=== PATIENT | male | born 1995 | race Caucasian/White ===

== ENCOUNTER 2017-11-04 11:08 | Emergency (ER) | payer OTHER ==
[2017-11-04 11:26] VITALS: BP 158/86; PULSE 95; RESP 17; TEMP 98
--- NOTE | 2017-11-04 11:43 | XR ---
Right leg HISTORY: Trauma and pain 2 views of the right leg Bone mineralization, joint spaces and alignment are maintained. Question soft tissue swelling. No rad iopaque foreign body. IMPRESSION: No fracture or dislocation. Correlate for soft tissue swelling. Follow-up as indicated.
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
== END 2017-11-04 12:45 | disposition home or self-care (01) ==
LOC: EC 11:08
DX: S80.11XA Contusion of right lower leg, initial encounter (principal); W22.8XXA Striking against or struck by other objects, initial encounter; Y99.0 Civilian activity done for income or pay
CPT/HCPCS: 99283

== ENCOUNTER 2020-04-02 16:24 | Emergency (ER) | payer OTHER ==
[2020-04-02 16:30] VITALS: BP 152/92; PULSE 89; RESP 18; TEMP 98.1
--- NOTE | 2020-04-02 16:47 | ED ---
General Adult HPI - General Chief complaint: Dental/Oral Stated complaint: dental infection Time Seen by Provider: 04/02/20 16:39 Source: patient, RN notes reviewed Mode of arrival: ambulatory Limitations: no limitations - History of Present Illness Initial comments: 24-year-old male presents to the emergency room for a chief complaint of dental pain. Patient has had dental pain for the past couple days. He has had an infection in this tooth before. Patient states he was trying to get into his dentist but was unable to because of insurance reasons. Patient denies fevers or chills. Denies trismus. Denies sublingual edema. Denies neck pain and stiffness.Patient has no other complaints at this time including shortness of breath, chest pain, abdominal pain, nausea or vomiting, headache, or visual changes. - Related Data Previous Rx's Medication Instructions Recorded Ibuprofen [Motrin] 600 mg PO Q6HR PRN #20 tab 11/04/17 Penicillin V Potassium [Pen Vee K] 500 mg PO Q6H 10 Days #40 tablet 04/02/20 Allergies Allergy/AdvReac Type Severity Reaction Status Date / Time No Known Allergies Allergy Verified 04/02/20 16:30 Review of Systems ROS Statement: Those systems with pertinent positive or pertinent negative responses have been documented in the HPI. ROS Other: All systems not noted in ROS Statement are negative. Past Medical History Past Medical History: No Reported History History of Any Multi-Drug Resistant Organisms: None Reported Past Surgical History: No Surgical Hx Reported Past Psychological History: No Psychological Hx Reported Smoking Status: Never smoker Past Alcohol Use History: Occasional Past Drug Use History: Marijuana General Exam Limitations: no limitations General appearance: alert, in no apparent distress Head exam: Present: atraumatic, normocephalic, normal inspection Eye exam: Present: normal appearance, PERRL, EOMI. Absent: scleral icterus, conjunctival injection, periorbital swelling ENT exam: Present: normal exam, mucous membranes moist, TM's normal bilaterally, normal external ear exam. Absent: normal oropharynx (tenderness to tooth 12. Patient does have previous filling noted. There is no abscess with direct visualization or palpation of the gum line. No sublingual edema. No trismus.) Neck exam: Present: normal inspection. Absent: tenderness, meningismus, lymphadenopathy Respiratory exam: Present: normal lung sounds bilaterally. Absent: respiratory distress, wheezes, rales, rhonchi, stridor Cardiovascular Exam: Present: regular rate, normal rhythm, normal heart sounds. Absent: systolic murmur, diastolic murmur, rubs, gallop, clicks Course Vital Signs 04/02/20 16:26 Temperature 98.1 F Pulse Rate 89 Respiratory 18 Rate Blood Pressure 152/92 O2 Sat by Pulse 99 Oximetry Medical Decision Making - Medical Decision Making patient was treated with penicillin. He was directed to follow up with his dentist as soon as possible. He will return here for any worsening symptoms. Disposition Clinical Impression: Pain, dental Disposition: HOME SELF-CARE Condition: Good Instructions (If sedation given, give patient instructions): Toothache (ED) Additional Instructions: take antibiotic as directed. Follow-up with dentist as soon as possible. Return to the emergency room for any worsening symptoms. [facility] [address] [id number] (existing clients only) New clients: [phone] 1st consult: $50 (includes XRs) Usually 30% less than private dentist for visits after. [employer] [facility] [employer] Have to pay $50 for Xrays and rest is covered [phone] Prescriptions: Penicillin V Potassium [Pen Vee K] 500 mg PO Q6H 10 Days #40 tablet Is patient prescribed a controlled substance at d/c from ED?: No Referrals: Talha Mackenzie MD [REFERRING] - 1-2 days Time of Disposition: 16:47
== END 2020-04-02 16:59 | disposition home or self-care (01) ==
LOC: EC 16:24
DX: K08.89 Other specified disorders of teeth and supporting structures (principal)
CPT/HCPCS: 99282

== ENCOUNTER 2020-04-03 19:47 | Emergency (ER) | payer OTHER ==
[2020-04-03 19:51] VITALS: TEMP 98.3
[2020-04-03] MEDS ORDERED: AMOXIC-POT CLAV 875MG STARTER PACK 2 TAB BTL PO STA (20:25)
[2020-04-03 20:26] VITALS: BP 160/98; PULSE 84; RESP 17
--- NOTE | 2020-04-03 20:26 | ED ---
General Adult HPI - General Chief complaint: Recheck/Abnormal Lab/Rx Stated complaint: Recheck tooth pain Time Seen by Provider: 04/03/20 19:54 Source: patient, RN notes reviewed, old records reviewed Mode of arrival: ambulatory Limitations: no limitations - History of Present Illness Initial comments: 24-year-old male patient presented he chief complaint of possible adverse effect from medication. Patient was seen here yesterday for a dental infection. Patient reports he started on Penicillin VK. Since then he's had some nausea and one episode of emesis. Denies any local or abdominal pain states that he had a small amount generalized discomfort which resolved. Denies any cough or congestion or sick contacts. Denies any other complaints. Pt denies any past medical history. Systemic: Pt denies fatigue, fever/chills, rash. Pt denies weakness, night sweats, weight loss. Neuro: Pt denies headache, visual disturbances, syncope or pre-syncope. HEENT: Pt denies ocular discharge or irritation, otalgia, rhinorrhea, pharyngitis or notable lymphadenopathy. Cardiopulmonary: Pt denies chest pain, SOB, heart palpitations, dyspnea on exertion. Abdominal/GI: Pt denies abdominal pain, n/v/d. : Pt denies dysuria, burning w/ urination, frequency/urgency. Denies new onset urinary or bowel incontinence. MSK: Pt denies myalgia, loss of strength or function in extremities. Neuro: Pt denies new onset weakness, paresthesias. - Related Data Previous Rx's Medication Instructions Recorded Ibuprofen [Motrin] 600 mg PO Q6HR PRN #20 tab 11/04/17 Penicillin V Potassium [Pen Vee K] 500 mg PO Q6H 10 Days #40 tablet 04/02/20 Amoxicillin/Potassium Clav 1 each PO Q12HR 7 Days #14 tab 04/03/20 [Augmentin 875-125 Tablet] Allergies Allergy/AdvReac Type Severity Reaction Status Date / Time No Known Allergies Allergy Verified 04/03/20 19:51 Review of Systems ROS Statement: Those systems with pertinent positive or pertinent negative responses have been documented in the HPI. ROS Other: All systems not noted in ROS Statement are negative. Past Medical History Past Medical History: No Reported History History of Any Multi-Drug Resistant Organisms: None Reported Past Surgical History: No Surgical Hx Reported Past Psychological History: No Psychological Hx Reported Smoking Status: Never smoker Past Alcohol Use History: Occasional Past Drug Use History: Marijuana General Exam - General Exam Comments Initial Comments: Constitutional: NAD, AOX3, Pt has pleasant affect. HEENT: NC/AT, trachea midline, neck supple, no lymphadenopathy. Posterior pharynx non erythematous, without exudates. External ears appear normal, without discharge. Mucous membranes moist. Eyes PERRLA, EOM intact. There is no scleral icterus. No pallor noted. No abscess noted. No dental abscess, significant gun erythema or discharge noted. Patient reports mild amount of pressure to 7th tooth. Cardiopulmonary: RRR, no murmurs, rubs or gallops, no JVD noted. Lungs CTAB in anterior and posterior aranda. No peripheral edema. Abdominal exam: Abdomen soft and non-distended. Abdomen non-tender to palpation in all 4 quadrants. Bowel sounds active in LLQ. No hepatosplenomegaly. Neuro: CN II-XII grossly intact. No nuchal rigidity. No raccon eyes, no mccord sign. MSK: Full active ROM in upper and lower extremities. Limitations: no limitations Course Vital Signs 04/03/20 19:48 Temperature 98.3 F Pulse Rate 81 Respiratory 20 Rate Blood Pressure 154/99 O2 Sat by Pulse 99 Oximetry Medical Decision Making - Medical Decision Making 24-year-old male patient presents to ED for evaluation of possible adverse effect from medication. Patient started on Penicillin VK yesterday. Since these had some nausea and one episode of emesis. Some [id number] abdom inal discomfort which has since resolved. Patient is requesting changing to an amoxicillin-containing medication which she has been able take for without any difficulty. Patient will be placed on Augmentin. Patient is also requesting a Covid test which we will perform. Patient will follow-up with primary care provider and return if any worsening symptoms. Case discussed with Dr. Garcia. Disposition Clinical Impression: Adverse effects of medication Disposition: HOME SELF-CARE Condition: Stable Instructions (If sedation given, give patient instructions): Toothache (ED) Additional Instructions: follow up with primary care provider tomorrow. Follow-up with dentist as soon as possible. Take antibiotics as directed. Stop taking the penicillin VK. Take medication with food. Self quarantine until coronavirus test result. Return to ER with any worsening symptoms. Prescriptions: Amoxicillin/Potassium Clav [Augmentin 875-125 Tablet] 1 each PO Q12HR 7 Days #14 tab Is patient prescribed a controlled substance at d/c from ED?: No Referrals: None,Stated [Primary Care Provider] - 1-2 days Talha Mackenzie MD [REFERRING] - 1-2 days
== END 2020-04-03 20:36 | disposition home or self-care (01) ==
LOC: EC 19:47
DX: R11.2 Nausea with vomiting, unspecified (principal); T36.0X5A Adverse effect of penicillins, initial encounter; Z20.828 Contact with and (suspected) exposure to other viral communicable diseases
CPT/HCPCS: 99284; U0003

== ENCOUNTER 2020-05-19 13:17 | Emergency (ER) | payer OTHER ==
[2020-05-19 13:25] VITALS: BP 139/88; PULSE 65; RESP 18; TEMP 98.1
--- NOTE | 2020-05-19 14:55 | ED ---
ENT HPI - General Chief complaint: ENT Stated complaint: lt ear pain Source: patient Mode of arrival: ambulatory Limitations: no limitations - History of Present Illness Initial comments: Patient is a 24-year-old previously healthy male presents emergency Department with reported decreased hearing to the left ear. Patient states that he got water in the ER couple of days ago. He has been attempting to remove the ear using hydrogen peroxide and Q-tips however has not had success. He feels as if he has muffled hearing on that side and feels slightly off balance has of it. He admits to a slight ache. No posterior ear pain. Denies any discharge. No headaches or visual changes. No fevers or chills. No sore throat. No other alleviating, precipitating or modifying factors - Related Data Previous Rx's Medication Instructions Recorded Amoxicillin/Potassium Clav 1 each PO Q12HR 7 Days #14 tab 04/03/20 [Augmentin 875-125 Tablet] Allergies Allergy/AdvReac Type Severity Reaction Status Date / Time Penicillins Allergy Unknown Verified 05/19/20 13:25 Review of Systems ROS Statement: Those systems with pertinent positive or pertinent negative responses have been documented in the HPI. ROS Other: All systems not noted in ROS Statement are negative. Past Medical History Past Medical History: No Reported History History of Any Multi-Drug Resistant Organisms: None Reported Past Surgical History: No Surgical Hx Reported Past Psychological History: No Psychological Hx Reported Smoking Status: Never smoker Past Alcohol Use History: Occasional Past Drug Use History: Marijuana General Exam Limitations: no limitations Course Vital Signs 05/19/20 13:21 Temperature 98.1 F Pulse Rate 65 Respiratory 18 Rate Blood Pressure 139/88 O2 Sat by Pulse 100 Oximetry Medical Decision Making - Medical Decision Making Upon arrival patient is placed in room 17. A thorough history and physical exam was performed. Left ear cerumen impaction is identified. We did irrigate the patient's left ear and removed multiple fragments of cerumen. Ears and visualized once again in the canal is completely clear. Patient reports to improvement in his symptoms. Sent patient be discharged home. May use Debrox eardrops [id number]. Follow up with his primary care physician for reevaluation. Return to the emergency department for any new or worsening symptoms. Patient was also given follow-up information for the ENT superintendent communications. Patient understood this he was discharged home in stable condition Disposition Clinical Impression: Excessive cerumen in left ear canal Disposition: HOME SELF-CARE Condition: Stable Instructions (If sedation given, give patient instructions): Cerumen Impaction (ED) Additional Instructions: Please follow-up with your primary care doctor. Return to the emergency room for any new or worsening symptoms Is patient prescribed a controlled substance at d/c from ED?: No Referrals: None,Stated [Primary Care Provider] - 1-2 days Sy Gonzales MD [STAFF PHYSICIAN] - 1-2 days Time of Disposition: 14:55
== END 2020-05-19 15:37 | disposition home or self-care (01) ==
LOC: EC 13:17
DX: H61.22 Impacted cerumen, left ear (principal); Z88.0 Allergy status to penicillin
CPT/HCPCS: 69209; 99282

== ENCOUNTER 2020-07-03 11:12 | Emergency (ER) | payer OTHER ==
[2020-07-03 11:22] VITALS: BP 127/82; PULSE 76; RESP 18; TEMP 98.6
--- NOTE | 2020-07-03 11:51 | ED ---
General Adult HPI - General Chief complaint: Dental/Oral Stated complaint: Mouth pain Time Seen by Provider: 07/03/20 11:25 Source: patient, RN notes reviewed Mode of arrival: ambulatory Limitations: no limitations - History of Present Illness Initial comments: 25-year-old male presents for dental pain. Patient reports that he had an infection several months ago. Patient states he was supposed of a root canal at that time but was unable. Patient states that the pain had resolved however it is now returning again starting a few days ago. Patient denies any difficulty opening his mouth or swallowing. Denies fevers or chills. Denies neck pain or stiffness.Patient has no other complaints at this time including shortness of breath, chest pain, abdominal pain, nausea or vomiting, headache, or visual changes. - Related Data Previous Rx's Medication Instructions Recorded Amoxicillin/Potassium Clav 1 each PO Q12HR 7 Days #14 tab 04/03/20 [Augmentin 875-125 Tablet] Clindamycin [Cleocin] 300 mg PO Q8H 7 Days #42 cap 07/03/20 Allergies Allergy/AdvReac Type Severity Reaction Status Date / Time Penicillins Allergy Unknown Verified 07/03/20 11:22 Review of Systems ROS Statement: Those systems with pertinent positive or pertinent negative responses have been documented in the HPI. ROS Other: All systems not noted in ROS Statement are negative. Past Medical History Past Medical History: No Reported History History of Any Multi-Drug Resistant Organisms: None Reported Past Surgical History: No Surgical Hx Reported Past Psychological History: No Psychological Hx Reported Smoking Status: Never smoker Past Alcohol Use History: Occasional Past Drug Use History: Marijuana General Exam Limitations: no limitations General appearance: alert, in no apparent distress Head exam: Present: atraumatic, normocephalic, normal inspection Eye exam: Present: normal appearance, PERRL, EOMI. Absent: scleral icterus, conjunctival injection, periorbital swelling ENT exam: Absent: normal oropharynx (Patient has tenderness to the left upper incisor. No dental abscess. No sublingual edema. No trismus.) Neck exam: Present: normal inspection, full ROM. Absent: tenderness, meningismus, lymphadenopathy Respiratory exam: Present: normal lung sounds bilaterally. Absent: respiratory distress, wheezes, rales, rhonchi, stridor Cardiovascular Exam: Present: regular rate, normal rhythm, normal heart sounds. Absent: systolic murmur, diastolic murmur, rubs, gallop, clicks Neurological exam: Present: alert Course Vital Signs 07/03/20 11:20 Temperature 98.6 F Pulse Rate 76 Respiratory 18 Rate Blood Pressure 127/82 O2 Sat by Pulse 98 Oximetry Medical Decision Making - Medical Decision Making Patient was given clindamycin given penicillin ALLERGY. He will follow up with his dentist. He'll return here for any worsening symptoms. Disposition Clinical Impression: Pain, dental Disposition: HOME SELF-CARE Condition: Good Instructions (If sedation given, give patient instructions): Dental Abscess (ED) Additional Instructions: Please take antibiotic as directed. Please follow-up with your doctor and dentist as soon as possible. Given any worsening symptoms return to the nearest ER. Prescriptions: Clindamycin [Cleocin] 300 mg PO Q8H 7 Days #42 cap Is patient prescribed a controlled substance at d/c from ED?: No Referrals: Talha Mackenzie MD [REFERRING] - 1-2 days Time of Disposition: 11:50
== END 2020-07-03 11:58 | disposition home or self-care (01) ==
LOC: EC 11:12
DX: K08.89 Other specified disorders of teeth and supporting structures (principal); Z88.0 Allergy status to penicillin
CPT/HCPCS: 99282

== ENCOUNTER 2020-07-07 13:01 | Emergency (ER) | payer OTHER ==
--- NOTE | 2020-07-07 15:08 | ED ---
General Adult HPI - General Chief complaint: Dental/Oral Stated complaint: Oral/face swelling Time Seen by Provider: 07/07/20 14:54 Source: patient Mode of arrival: ambulatory Limitations: no limitations - History of Present Illness Initial comments: 25-year-old male patient presents to the emergency department today for evaluation of left-sided facial swelling. Patient states he was seen and evaluated here on 07/03/2020 and diagnosed with a dental infection and prescribed clindamycin. Patient states he has been taking the medication as directed. States he did see the dentist today and was informed he will need follow-up with a specialist for root canal. He states that it is to be a couple of weeks before he is able to get and so he wanted to come back here in the evaluated again. States that this seems like the swelling increased today. Denies any fever or chills. Denies nausea or vomiting. Denies any trismus or difficulty swallowing. - Related Data Home Medications Medication Instructions Recorded Confirmed Ibuprofen [Motrin Ib] 800 mg PO Q8H PRN 07/07/20 07/07/20 Previous Rx's Medication Instructions Recorded Clindamycin [Cleocin] 300 mg PO Q8H 7 Days #42 cap 07/03/20 Naproxen [EC-Naprosyn] 500 mg PO BID PRN #30 tablet. 07/07/20 Allergies Allergy/AdvReac Type Severity Reaction Status Date / Time Penicillins Allergy Unknown Verified 07/07/20 15:07 Review of Systems ROS Statement: Those systems with pertinent positive or pertinent negative responses have been documented in the HPI. ROS Other: All systems not noted in ROS Statement are negative. Past Medical History Past Medical History: No Reported History History of Any Multi-Drug Resistant Organisms: None Reported Past Surgical History: No Surgical Hx Reported Past Psychological History: No Psychological Hx Reported Smoking Status: Never smoker Past Alcohol Use History: Occasional Past Drug Use History: Marijuana General Exam Limitations: no limitations General appearance: alert, in no apparent distress, other (This is a well- developed, well-nourished adult male patient in no acute distress. Vital signs upon presentation are temperature 99.1F, pulse 72, respirations 18, blood pressure 137/83, pulse ox 99% on room air.) Eye exam: Present: normal appearance, PERRL, EOMI. Absent: scleral icterus, conjunctival injection, periorbital swelling ENT exam: Present: normal exam, normal oropharynx, mucous membranes moist, other (There are dental caries noted to left upper dentition. Left-sided facial swelling over the maxillary region.) Neck exam: Present: normal inspection. Absent: tenderness, meningismus, lymphadenopathy Respiratory exam: Present: normal lung sounds bilaterally. Absent: respiratory distress, wheezes, rales, rhonchi, stridor Cardiovascular Exam: Present: regular rate, normal rhythm, normal heart sounds. Absent: systolic murmur, diastolic murmur, rubs, gallop, clicks Neurological exam: Present: alert, oriented X3, CN II-XII intact Psychiatric exam: Present: normal affect, normal mood Skin exam: Present: warm, dry, intact, normal color. Absent: rash Course Vital Signs 07/07/20 07/07/20 13:25 15:37 Temperature 99.1 F 98.6 F Pulse Rate 72 69 Respiratory 18 17 Rate Blood Pressure 137/83 121/67 O2 Sat by Pulse 99 98 Oximetry Medical Decision Making - Medical Decision Making 25-year-old male patient presented to the emergency department today for evaluation of increased left-sided facial swelling. Diagnosed with a dental infection 4 days ago. Has been taking clindamycin. Did see dentistry today. Has a plan to follow-up with the fitness attendant. Physical examination did reveal mild swelling to the left side of the face. No evidence of drainable abscess inside the mouth. He is afebrile. Vital signs within normal ranges. We will continue clindamycin. Given prescription for naproxen. Instructed to apply cool compresses. Return parameters were discussed in detail. He verbalizes understanding and agrees with this plan. Disposition Clinical Impression: Dental infection Disposition: HOME SELF-CARE Condition: Good Instructions (If sedation given, give patient instructions): Dental Abscess (ED), Toothache (ED) Additional Instructions: Complete antibiotic as prescribed. Take naproxen for pain and swelling control. Follow-up with oral specialist as soon as possible. Consider doing cool compresses to the face to aid with swelling as well. Follow-up through primary care physician for recheck in 1-2 days. Return to the emergency department for any new, worsening, or concerning symptoms. Prescriptions: Naproxen [EC-Naprosyn] 500 mg PO BID PRN #30 tablet.dr MINAYA Reason: Pain Is patient prescribed a controlled substance at d/c from ED?: No Referrals: None,Stated [Primary Care Provider] - 1-2 days Time of Disposition: 15:08
[2020-07-07 15:38] VITALS: BP 121/67; PULSE 69; RESP 17; TEMP 98.6
== END 2020-07-07 15:37 | disposition home or self-care (01) ==
LOC: EC 13:01
DX: K04.7 Periapical abscess without sinus (principal); K02.9 Dental caries, unspecified; Z88.0 Allergy status to penicillin
CPT/HCPCS: 99283